=== PATIENT | female | born 1985 | race African-American/Black ===

== ENCOUNTER 2023-04-26 10:37 | Inpatient (IN) | payer OTHER ==
[2023-04-26 11:18] VITALS: BMI 18.6
[2023-04-26] MEDS ORDERED: DICYCLOMINE HCL 10 MG CAPSULE PO PRN (12:36)
[2023-04-26] MEDS ORDERED: BENZOCAINE/MENTHOL (CHLORASEPTIC ) LOZENGE MM PRN (12:36)
[2023-04-26] MEDS ORDERED: ACETAMINOPHEN 325 MG TABLET (FP) PO PRN (12:36)
[2023-04-26] MEDS ORDERED: IBUPROFEN 400 MG TABLET (FP) PO PRN (12:36)
[2023-04-26] MEDS ORDERED: MAGNESIUM HYDROX 2400MG/30ML ORAL SUSPENSION 30 ML CUP PO PRN (12:36)
[2023-04-26] MEDS ORDERED: P-EPHED 60MG/TRIPROLIDI 2.5MG TABLET PO PRN (12:36)
[2023-04-26] MEDS ORDERED: BISMUTH SUBSALICYLATE 524 MG/30 ML PO PRN (12:36)
[2023-04-26] MEDS ORDERED: BENZONATATE 200 MG CAPSULE PO PRN (12:36)
[2023-04-26] MEDS ORDERED: guaiFENesin 600 MG TABLET.ER (FP) PO PRN (12:36)
[2023-04-26] MEDS ORDERED: NALOXONE HCL 0.4 MG/ML VIAL IM PRN (12:36)
[2023-04-26] MEDS ORDERED: MAG HYDROX/AL HYDROX/SIMETH 30 ML UNIT-DOSE CUP PO PRN (12:36)
[2023-04-26] MEDS ORDERED: IBUPROFEN 600 MG TABLET (FP) PO PRN (12:36)
[2023-04-26] MEDS ORDERED: LOPERAMIDE HCL 2 MG CAPSULE PO PRN (12:36)
[2023-04-26] MEDS ORDERED: NALOXONE HCL (KLOXXADO) 8 MG SPRAY NS PRN (12:36)
[2023-04-26] MEDS ORDERED: POLYETHYLENE GLYCOL (HEALTHYLAX) 3350 17 GM PACKET PO PRN (12:36)
[2023-04-26] MEDS ORDERED: methaDONE HCL 10 MG TABLET (FOR DETOX USE ONLY) ONE (12:59)
[2023-04-26] MEDS ORDERED: TRIMETHOBENZAMIDE HCL 200MG/2ML INJ IM ONE (12:59)
[2023-04-26] MEDS: TRIMETHOBENZAMIDE HCL 200MG/2ML INJ IM ONE (13:10)
[2023-04-26] MEDS: methaDONE HCL 10 MG TABLET (FOR DETOX USE ONLY) PO ONE (13:11)
[2023-04-26] MEDS: METHOCARBAMOL 500 MG TABLET PO PRN (21:03)
[2023-04-26] MEDS: MELATONIN 5 MG TABLETS PO SCH (23:08)
[2023-04-26] MEDS: THIAMINE HCL 100 MG TABLET (FP) PO SCH (23:09)
[2023-04-27] MEDS: cloNIDine HCL 0.1 MG TABLET PO PRN (05:38)
[2023-04-27] MEDS ORDERED: methaDONE HCL 10 MG TABLET (FOR DETOX USE ONLY) PO ONE (10:00)
[2023-04-27] MEDS: PRENATAL VITAMINS W/ FOLIC ACID TABLET (FP) PO SCH (10:01)
[2023-04-27 11:13] LABS: HEMATOCRIT 40.4 % (32.4-45.2); HEMOGLOBIN 13.1 GM/dL (10.7-15.3); MCH 26.6 pg (25.7-33.7); MCHC 32.5 g/dl (32.0-36.0); MEAN CELL VOLUME 81.8 fl (80-96); MEAN PLT VOLUME 10.1 fl (7.5-11.1); PLATELET COUNT 259 10^3/uL (134-434); RBC 4.94 M/mm3 (3.60-5.2); RDW 16.9 % (11.6-15.6); WHITE BLOOD COUNT 5.9 K/mm3 (4.0-10.0)
[2023-04-27 11:15] LABS: POTASSIUM 3.7 mmol/L (3.5-5.1)
[2023-04-27 11:23] LABS: BLOOD UREA NITROGEN 10.2 mg/dL (7-18)
[2023-04-27 11:25] LABS: CALCIUM 9.4 mg/dL (8.5-10.1)
[2023-04-27 11:28] LABS: BILIRUBIN,TOTAL 1.4 mg/dL (0.2-1); TOT PROT 8.6 g/dl (6.4-8.2)
[2023-04-27] MEDS: QUEtiapine FUMARATE 400 MG TABLET PO SCH (22:10)
[2023-04-28] MEDS: methaDONE HCL 10 MG TABLET (FOR DETOX USE ONLY) PO ONE ×2 (10:51→12:49)
[2023-04-28 18:11] VITALS: BP 100/57; PULSE 60; RESP 16
[2023-04-29 06:49] VITALS: TEMP 98.9
[2023-04-29] MEDS: methaDONE HCL 10 MG TABLET (FOR DETOX USE ONLY) PO ONE (06:58)
== END 2023-04-29 10:35 | disposition home or self-care (01) | DRG 773 ==
LOC: YASAS 10:37 → Y6N 12:26
PROVIDERS: ADMIT Allergy & Immunology; ATTEND Surgery
PROC: HZ2ZZZZ Detoxification Services for Substance Abuse Treatment (ICD-10-PCS; principal; 2023-04-26)
DX: F11.23 Opioid dependence with withdrawal (principal); F14.20 Cocaine dependence, uncomplicated; F12.20 Cannabis dependence, uncomplicated; F31.9 Bipolar disorder, unspecified; F25.9 Schizoaffective disorder, unspecified; F43.10 Post-traumatic stress disorder, unspecified; Z91.410 Personal history of adult physical and sexual abuse; Z63.0 Problems in relationship with spouse or partner; Z59.02 Unsheltered homelessness
CPT/HCPCS: 36415; 80053; 81025; 85027; 86780; 87635; 87811; 93005; 93010